=== PATIENT | male | born 1990 | race Caucasian/White ===

== ENCOUNTER 2023-07-11 10:44 | Outpatient (REF) | payer MEDICAID, SELFPAY ==
--- NOTE | ~2023-07-11 | US_ITS ---
EXAMINATION: US SCROTUM CLINICAL INFORMATION: Left testicular mass. COMPARISON: None available. TECHNIQUE: A sonogram of the scrotum was performed assessing crouch-scale appearance and color Doppler flow. Spectral Doppler analysis of the arterial and venous flow were performed in the testes bilaterally. FINDINGS: RIGHT: Right testicle measures 4.5 x 2.0 x 2.7 cm, volume 12.7 mL. No focal testicular parenchymal lesions are visualized. Spectral Doppler analysis of the arterial and venous flow is normal in the right testis. Right epididymal head is normal in size. No right hydrocele or varicocele is seen. Right epididymal Doppler flow is normal. LEFT: Left testicle measures 4.3 x 1.8 x 2.8 cm, volume 11.3 mL. No focal testicular parenchymal lesions are visualized. Spectral Doppler analysis of the arterial and venous flow is normal in the left testis. Left epididymal head is normal in size. A 1.2 cm in maximal diameter left epididymal head cyst versus spermatocele is seen. No left hydrocele or varicocele is seen. Left epididymal Doppler flow is normal. US/US scrotum IMPRESSION: 1. A 1.2 cm in maximal diameter left epididymal head cyst versus spermatocele is seen. 2. No testicular mass or torsion is seen bilaterally. 3. There is no hydrocele or varicocele.
== END 2023-07-11 10:45 | disposition home or self-care (01) ==
LOC: HO.US 10:44
PROVIDERS: Visit Provider Emergency Medicine
DX: N50.89 Other specified disorders of the male genital organs (principal)
CPT/HCPCS: 76870

== ENCOUNTER → 2023-11-13 10:53 | Outpatient (BNVA) | payer MEDICAID, SELFPAY | PROVIDERS: PCP Emergency Medicine; Visit Provider Urology ==

== ENCOUNTER 2023-11-24 09:37 | Outpatient (AMB) | payer MEDICAID, SELFPAY ==
--- NOTE | 2023-11-24 09:40 | A.OFFVIS_ITS ---
Intake Intake Visit Reasons: Epididymal cyst Intake Note: NEW Patient presents today to established treatment for Epididymal Cyst: Meds- None Allergies to Antibiotic- No Known Allergies Blood Thinner- None Natural Sciences Manager Required: No Accompanied by: Self / Same As Patient Allergies No Known Drug Allergies Adverse Reaction (Verified 11/24/23 10:05) Unknown SEASONAL ALLERGIES Allergy (Unknown, Uncoded 11/24/23 10:05) SNEEZING [facility] HPI Comments History of Present Illness Details Reid is a 33-year-old gentleman who is here for evaluation of left epididymal cyst. He states he noted the cyst on self examination of the testicle area, so he brought it to the attention of his PCP. The patient had a testicular ultrasound done on 07/2023. I have reviewed the report. Ultrasound scrotum: Testicules normal no masses, 1.2 cm left epididymal head cyst Examination: Bilateral testes nontender left epididymal head cyst palpated nontender, no scrotal swelling 11/24/2023--plan: Follow-up [facility] Medical History (Updated 11/24/23 @ 10:47 by Christian Lindquist MD) Epididymal cyst Surgical History No pertinent past surgical history Family History Father No family history of cancer Mother No family history of cancer Social History Alcohol intake: current Alcohol intake frequency: holidays/special occasions only Patient Tobacco Use Status: Never used Tobacco Review of Systems Const All systems reviewed & are unremarkable except as noted in HPI and below Reports no additional complaints Eyes Reports no additional complaints ENT Reports no additional complaints Card Denies dyspnea Resp Denies cough and Denies dyspnea GI Reports no additional complaints Musc Reports no additional complaints Skin/Breast Denies rash and Denies unusual bruising Neuro Reports no additional complaints Psych Reports no additional complaints Endo Reports no additional complaints López/Lymph Reports no additional complaints Aller/Immun Reports no additional complaints Physical Exam Const General: healthy appearing, no acute distress and well developed Orientation/consciousness: patient oriented x3 HEENT Head: Yes normocephalic and Yes atraumatic Eyes Conjunctivae: conjunctivae normal Neck Neck: Yes normal visual inspection Chest Chest palpation & inspection: normal inspection of the chest Resp Effort & Inspection: normal respiratory effort Cardio Rate: regular rate GI Inspection: Yes normal to inspection Palpation (GI): Soft to palpation Other: left epididymal head cyst palpated nontender Penis: normal penis and uncircumcised Scrotum: scrotum normal Skin General skin exam: no rashes or lesions noted Neuro General: patient oriented x3 Extrem General: No pedal edema Psych Appearance: grossly normal Affect: normal affect Results AMB Urinalysis, Automated UA Leukoctes 15 David/uL Last Edit by ELVIRA Mckeon on 11/24/23 10:32 UA Nitrite Negative Last Edit by ELVIRA Mckeon on 11/24/23 10:32 UA Urobilinogen 0.2 mg/dL Last Edit by ELVIRA Mckeon on 11/24/23 10:3 2 UA Protein 0 mg/dL Last Edit by ELVIRA Mckeon on 11/24/23 10:32 UA pH 5.5 Last Edit by ELVIRA Mckeon on 11/24/23 10:32 UA Blood 0 Ronnie/uL Last Edit by ELVIRA Mckeon on 11/24/23 10:32 UA Specific [place] 1.030 Last Edit by ELVIRA Mckeon on 11/24/23 10: 32 UA Ketone Negative Last Edit by ELVIRA Mckeon on 11/24/23 10:32 UA Bilirubin 0 mg/dL Last Edit by ELVIRA Mckeon on 11/24/23 10:32 UA Glucose 0 mg/dL Last Edit by ELVIRA Mckeon on 11/24/23 10:32 Results Reviewed Results Reviewed: Laboratory Last Values Urine pH (Auto) 5.5 02/23/24 10:31 Specific [place] (Auto) 1.030 11/24/23 10:31 Urine Protein (Auto) 0 mg/dL 11/24/23 10:31 Glucose (UA)(Auto) 0 mg/dL 11/24/23 10:31 Urine Ketones (Auto) Negative 11/24/23 10:31 Urine Blood (Auto) 0 Ronnie/uL 11/24/23 10:31 Urine Nitrite (Auto) Negative 11/24/23 10:31 Urine Bilirubin (Auto) 0 mg/dL 11/24/23 10:31 Urine Urobilinogen (Auto) 0.2 mg/dL 11/24/23 10:31 Leukocyte Esterase (Auto) 15 David/uL 11/24/23 10:31 Assessment & Plan Assessment & Plan (1) Epididymal cyst: Code(s): N50.3 - Cyst of epididymis Plan Patient is asymptomatic. Follow-up p.r.n. Orders: Orders AMB Urinalysis Automated 11/24/23 Z13.9 - Encounter for screening, unspecified Patient Instructions: The patient had an opportunity to ask questions regarding treatment plan. All questions were answered. Imaging, Laboratory studies and physical exam results were discussed and reviewed in detail. No major barriers to understanding were identified. The patient expressed understanding and agreement with the above treatment plan. The patient is aware they should contact our office by phone for worsening of their current condition or the appearance of new symptoms. Compliance is encour aged with any medications and followup testing that is ordered. It is a privilege to be allowed the opportunity to participate in the urologic care of your patient. If you have any questions or concerns regarding treatment for the above conditions please do not hesitate to contact me. The office telephone contact is [phone]. This note is constructed in part using voice recognition software. While every effort has been made to ensure accuracy operations administrative assistant errors may have been included. Yours sincerely, Christian Lindquist MD Coding Level of Care Code New Pt Level 3 (23985) Diagnoses Epididymal cyst N50.3
== END 2023-11-24 10:24 | disposition home or self-care (01) ==
PROVIDERS: PCP Emergency Medicine; Visit Provider Urology
DX: N50.3 Cyst of epididymis (principal)
CPT/HCPCS: 99203

== ENCOUNTER → 2023-11-24 09:37 | Outpatient (BNVA) | payer MEDICAID, SELFPAY | PROVIDERS: PCP Emergency Medicine; Visit Provider Urology | DX: N50.3 Cyst of epididymis (principal) | CPT/HCPCS: 81003; 99202 ==

== ENCOUNTER 2024-12-16 14:39 | Emergency (ER) | payer MEDICAID, SELFPAY ==
[2024-12-16 15:42] VITALS: BP 120/84; PULSE 116; RESP 20; TEMP 37.2; O2SAT 100; BMI 22.9
--- NOTE | 2024-12-16 15:43 | ED_ITS ---
HPI - General Adult General Chief complaint: Abdominal Pain Stated complaint: L sided pain Time Seen by Provider: 12/16/24 22:56 Source: patient, RN notes reviewed and old records reviewed Mode of arrival: ambulatory Limitations: no limitations History of Present Illness ED Provider: Mehreen HE narrative: 34-year-old male past medical history significant for peptic ulcer disease presents for evaluation of left-sided abdominal pain. Patient reports he has had the pain on and off for 1 year. He does have a remote history of upper GI bleed. He reports that at the time several years ago he was ?drinking alcohol and using cocaine. He discontinued the substance abuse He does not currently take any medications He denies any nausea, vomiting, diarrhea No other complaints or concerns at this time Related Data Previous Rx's ?Medication ?Instructions ?Recorded omeprazole 20 mg capsule,delayed 20 mg PO DAILY #30 caps 12/16/24 release Allergies Allergy/AdvReac Type Severity Reaction Status Date / Time No Known Drug Allergies AdvReac Unknown Verified 12/16/24 15:45 SEASONAL ALLERGIES Allergy Unknown SNEEZING Uncoded 12/16/24 15:45 Review of Systems 2 Constitutional: Constitutional: Denies body ache(s), Denies chills and Denies fever(s) Eyes: Eyes: Denies blurry vision ENT: Denies vertigo Cardiovascular: Cardiovascular: Denies dyspnea Respiratory: Respiratory: Denies cough and Denies dyspnea Gastrointestinal: Gastrointestinal: Reports abdominal pain, Denies nausea and Denies vomiting Musculoskeletal: Musculoskeletal: Denies back pain Integumentary/Breasts: Skin/Breast: Denies rash and Denies other Neurologic: Denies vertigo [facility] Past Medical History Medical History (Updated 12/17/24 @ 00:00 by Bony Hidalgo) Epididymal cyst Surgical History No pertinent past surgical history Family History Family History Father No family history of cancer Mother No family history of cancer Social History Social History Alcohol intake: current Alcohol intake frequency: holidays/special occasions only Patient Tobacco Use Status: Never used Tobacco Advance Directives: No Advance Directives Information Provided: Yes Physical Exam ED Vital Signs: Vital Signs - 24 hr 12/16/24 15:42 12/16/24 18:05 12/16/24 22:49 Temperature 98.9 F 98.6 F 97.8 F Pulse Rate 116 H 85 97 Respiratory Rate 20 20 12 Blood Pressure 120/84 136/86 107/73 Pulse Oximetry 100 98 100 Oxygen Delivery Method Room Air Room Air Room Air 12/16/24 23:29 Temperature 97.8 F Pulse Rate 97 Respiratory Rate 12 Blood Pressure 107/73 Pulse Oximetry 100 Oxygen Delivery Method Room Air BMI result Body Mass Index 22.9 Const General: healthy appearing, comfortable, no acute distress, alert and awake Nutritional Appearance: well nourished Orientation/consciousness: patient oriented x3 HENMT Head: Yes normocephalic and Yes atraumatic Eyes Eyelids: Yes eyelids normal Conjunctivae: conjunctivae normal Sclerae: sclerae normal Corneas: corneas normal Pupils: Equal, round and reactive pupils present EOM: EOMs intact bilaterally Neck Neck: Yes full ROM Resp Effort & Inspection: normal respiratory effort, able to speak in complete sentences and not labored GI Inspection: No distended Palpation (GI): Soft to palpation, not firm, Tenderness to palpation present (GI) in the epigastrum and in the LUQ; not in the LLQ, not in the RLQ, not in the RUQ and Clayton's sign negative, no guarding and not rigid Auscultation: normoactive bowel sounds Skin General skin exam: elasticity normal Neuro General: patient oriented x3 Cranial nerves: Yes Equal, round and reactive pupils present and Yes Bilaterally intact EOM present Cognition (Neuro): normal cognition Extrem Other: Moving all extremities well without any obvious deformities Course Course Course Narrative: This is a rapid medical exam performed by Lalito Ken NP: Additional HPI, ROS, PE not included below will be deferred to primary provider. Patient is a 34-year-old male presenting with complaint of LUQ abd pain for the past year. Pain intermittent. Plan: labs Medical Decision Making Medical Decision Making MDM Narrative: 34-year-old male presents for evaluation of intermittent upper abdominal pain over the last year. The patient's physical exam is reassuring, vital signs are stable. He was not anemic, denies any black or bloody stool. Plan to treat for gastritis and he will be referred to GI for likely upper endoscopy. I do not see any indication for emergent imaging at this time. He has no right upper quadrant tenderness, LFTs within normal limits. No right lower quadrant tenderness to suggest appendicitis. Differential Diagnosis Differential Diagnoses: The differential diagnosis associated with the presentation includes Gastritis Peptic ulcer disease Biliary colic Pancreatitis Constipation Lab Data MDM Lab Attestation statement: I reviewed the patient's lab results. No leukocytosis or anemia. Normal platelet count. No electrolyte abnormalities. Renal function within normal limits. LFTs within normal limits. 12/16/24 15:55 12/16/24 15:55 Labs: Lab Results 12/16/24 Range/Units 15:55 WBC 8.7 (4.8-10.8) X10*3/uL RBC 5.45 (4.60-5.80) X10*6/uL Hgb 15.8 (14.0-18.0) g/dl Hct 46.6 (42.0-52.0) % MCV 85.5 (80.0-98.0) fL MCH 29.0 (27.0-33.0) pg MCHC 33.9 (31.0-36.0) g/dl RDW 12.4 (11.0-16.0) % Plt Count 205 (160-400) X10*3/uL MPV 10.9 (9.4-12.4) fL Immature Gran % (Auto) 0.3 (0.0-0.4) % Neut % (Auto) 50.5 (45-73) % Lymph % (Auto) 37.2 (20-40) % Caroline % (Auto) 8.2 (2-11) % Eos % (Auto) 3.0 (0-4) % Baso % (Auto) 0.8 (0-2) % Lymph # (Auto) 3.2 (1.2-4.9) X10*3/uL Caroline # (Auto) 0.7 (0.1-1.2) X10*3/uL Eos # (Auto) 0.3 (0.0-0.4) X10*3/uL Baso # (Auto) 0.1 (0.0-0.2) X10*3/uL Abs Immat Gran (auto) 0.03 (0.00-0.03) X10*3/uL Absolute Neuts (auto) 4.4 (2.0-8.3) x10*3/uL Absolute Nucleated RBC 0.000 (0.0-0.012) X10*3/uL Nucleated RBC % (auto) 0.0 (0.0-0.2) /100WBC Sodium 143 (135-145) mmol/L Potassium 4.3 (3.3-5.1) mmol/L Chloride 109 H (96-108) mmol/L Carbon Dioxide 28 (22-29) mmol/L Anion Gap 10 L (12-20) BUN 16 (9-16) mg/dL Creatinine 1.03 (0.5-1.4) mg/dL Estim Creat Clear Calc 90.3 Estimated GFR > 60 Random Glucose 95 (60-115) mg/dL Calcium 9.5 (8.4-10.2) mg/dL Total Bilirubin 0.4 (0.0-1.0) mg/dL AST 27 (5-37) U/L ALT 24 (0-40) U/L Alkaline Phosphatase 62 (39-117) U/L Total Protein 7.4 (6.5-8.0) g/dL Albumin 4.3 (3.5-5.0) g/dL Lipase 58 (8-78) U/L Discharge Plan Discharge Clinical Impression: Abdominal pain Patient Disposition: Home, Self-Care Instructions: Abdominal Pain (ED) Additional Instructions: Your workup in the ER today was reassuring Your symptoms are likely related to gastritis or peptic ulcer disease. I recommend that you restart taking omeprazole daily for the next month. I recommend that you follow-up with GI, call tomorrow at the number provided Prescriptions: New omeprazole 20 mg capsule,delayed release(DR/EC) 20 mg PO DAILY Qty: 30 0RF Referrals: Miky Phoenix MD [Physician] - (peptic ulcer disease) Stand Alone Forms: Work/School Release Interventions: ED Discharge Assessment Last Done: 12/16/24 23:29 Discharge Date/Time: 12/16/24 23:30 Print Language: Tajik
[2024-12-16 15:59] LABS: MANUAL DIFF FLAG NO
[2024-12-16 16:01] LABS: Basophils Absolute Auto 0.1 X10*3/uL (0.0-0.2); Basophils Percent Auto 0.8 % (0-2); Eosinophils Absolute Auto 0.3 X10*3/uL (0.0-0.4); Hematocrit 46.6 % (42.0-52.0); Hemoglobin 15.8 g/dl (14.0-18.0); Imm Gran Abs Auto 0.03 X10*3/uL (0.00-0.03); Imm Gran Pct Auto 0.3 % (0.0-0.4); Lymphocytes Absolute Auto 3.2 X10*3/uL (1.2-4.9); Lymphocytes Percent Auto 37.2 % (20-40); Mean Corpuscular HGB Conc 33.9 g/dl (31.0-36.0); Mean Corpuscular Volume 85.5 fL (80.0-98.0); Mean Platelet Volume 10.9 fL (9.4-12.4); Monocytes Absolute Auto 0.7 X10*3/uL (0.1-1.2); Monocytes Percent Auto 8.2 % (2-11); Neutrophils Absolute Auto 4.4 x10*3/uL (2.0-8.3); Neutrophils Percent Auto 50.5 % (45-73); Platelet Count 205 X10*3/uL (160-400); Red Blood Count 5.45 X10*6/uL (4.60-5.80); Red Cell Distribution Width 12.4 % (11.0-16.0); White Blood Count 8.7 X10*3/uL (4.8-10.8)
[2024-12-16 16:22] LABS: Alanine Aminotransferase 24 U/L (0-40); Albumin Level 4.3 g/dL (3.5-5.0); Alkaline Phosphatase 62 U/L (39-117); Anion Gap 10 (12-20); Aspartate Amino Transferase 27 U/L (5-37); Bilirubin Total 0.4 mg/dL (0.0-1.0); Blood Urea Nitrogen 16 mg/dL (9-16); Calcium 9.5 mg/dL (8.4-10.2); Carbon Dioxide 28 mmol/L (22-29); Chloride 109 mmol/L (96-108); Creatinine Clr Calc Pharmacy 90.3; Estimated Glomerular Filt Rate > 60; Glucose Random 95 mg/dL (60-115); Lipase 58 U/L (8-78); Potassium 4.3 mmol/L (3.3-5.1); Sodium 143 mmol/L (135-145); Total Protein 7.4 g/dL (6.5-8.0)
[2024-12-16 18:05] VITALS: BP 136/86; PULSE 85; RESP 20; TEMP 37; O2SAT 98
[2024-12-16 22:49] VITALS: BP 107/73; PULSE 97; RESP 12; TEMP 36.6; O2SAT 100
[2024-12-16 23:29] VITALS: BP 107/73; PULSE 97; RESP 12; TEMP 36.6; O2SAT 100
== END 2024-12-16 23:30 | disposition home or self-care (01) ==
PROVIDERS: Registered Nurse Emergency; Emergency Provider Emergency Medicine
DX: R10.12 Left upper quadrant pain (principal)
CPT/HCPCS: 36415; 80053; 83690; 85025; 99283